=== PATIENT | male | born 1970 | race Caucasian/White ===

== ENCOUNTER → 2019-10-18 13:08 | Outpatient (CLI) | payer OTHER, SELFPAY ==
[2019-10-21 12:25] LABS: Mitogen-NIL > 10.00 IU/mL; NIL 0.05 IU/mL; QuantiFERON TB NEGATIVE (Negative); TB1-NIL 0.22 IU/mL
== END ==
PROVIDERS: Family Provider Family Medicine; PCP Family Medicine; Visit Provider Dermatology
DX: Z79.899 Other long term (current) drug therapy (principal); L40.0 Psoriasis vulgaris; L40.59 Other psoriatic arthropathy
CPT/HCPCS: 36415; 86480

== ENCOUNTER → 2019-11-29 09:49 | Outpatient (CLI) | payer OTHER, SELFPAY ==
[2019-12-02 13:49] LABS: Mitogen-NIL > 10.00 IU/mL; NIL 0.19 IU/mL; QuantiFERON TB NEGATIVE (Negative); TB1-NIL < 0.01 IU/mL; TB2-NIL 0.02 IU/mL
== END ==
PROVIDERS: PCP Family Medicine; Visit Provider Dermatology
DX: Z79.899 Other long term (current) drug therapy (principal)
CPT/HCPCS: 36415; 86480

== ENCOUNTER → 2020-11-07 09:28 | Outpatient (CLI) | payer OTHER, SELFPAY ==
[2020-11-11 18:35] LABS: QuantiFERON Mitogen Value 9.23 IU/mL (.); QuantiFERON Nil Value 0.49 IU/mL (.); QuantiFERON TB Gold Plus Negative (Negative); QuantiFERON TB1 Ag Value 0.69 IU/mL (.); QuantiFERON TB2 Ag Value 0.66 IU/mL (.)
== END ==
PROVIDERS: PCP Family Medicine; Referring Provider Dermatology; Visit Provider Dermatology
DX: Z79.899 Other long term (current) drug therapy (principal)
CPT/HCPCS: 36415; 86480

== ENCOUNTER → 2021-11-12 08:07 | Outpatient (CLI) | payer OTHER, SELFPAY ==
[2021-11-14 10:39] LABS: QuantiFERON Mitogen Value >10.00 IU/mL (.); QuantiFERON Nil Value 0.43 IU/mL (.); QuantiFERON TB Gold Plus Positive (Negative); QuantiFERON TB1 Ag Value 0.64 IU/mL (.); QuantiFERON TB2 Ag Value 0.79 IU/mL (.)
== END ==
PROVIDERS: PCP Family Medicine; Referring Provider Dermatology; Visit Provider Dermatology
DX: Z79.899 Other long term (current) drug therapy (principal); L40.0 Psoriasis vulgaris; L40.59 Other psoriatic arthropathy
CPT/HCPCS: 36415; 86480